=== PATIENT | male | born 1965 | race Caucasian/White ===

== ENCOUNTER 2023-06-19 19:12 | Emergency (ER) | payer MEDICARE ==
[~2023-06-19] VITALS: Ht 180.3 cm; Wt 106.6 kg
[2023-06-19 19:26] VITALS: BP 116/83
[2023-06-19] MEDS ORDERED: CEPH500 PO (19:52)
== END 2023-06-19 20:03 | disposition home or self-care (01) ==
LOC: ER 19:12
DX: L03.116 Cellulitis of left lower limb (principal); R60.0 Localized edema; Z88.0 Allergy status to penicillin
CPT/HCPCS: 99283